=== PATIENT | male | born 1950 | race Caucasian/White ===

== ENCOUNTER 2022-03-05 10:39 | Day surgery (SDC) | payer OTHER ==
[2022-03-04 12:18] LABS: COVID AG,FIA SOURCE NASAL SWAB
[~2022-03-05] VITALS: Ht 182.9 cm; Wt 78.5 kg
[~2022-03-05 10:39] MED LIST: ASPI-1450 PO; ATOR40TA71 PO; CHOL10002 PO; CLOT15CR23 TP; DAPA10TA PO; DEXT15DR29 OU; DOCU100C33 PO; DULO-113 PO; FERR325T23 PO; GABA800T9 PO; INSU100V43 SQ; INSU3INS5 INJ; LACT10SO10 PO; LAMO100 PO; LISI10TA24 PO; PANT-31 PO; QUET25TA PO; SODIUM CHLORIDE 0.9% 1,000 ML IV ONE; SODIUM CHLORIDE 0.9% 1,000 ML ONE; TAMS-13 PO
[2022-03-05 11:56] LABS: GLUCOMETER DEV NAME(LOC) SDS.; GLUCOSE,POINT OF CARE 86 MG/DL (70-110)
[2022-03-05] MEDS ORDERED: PROPOFOL 1% 20 ML VIAL IVP ONE (12:00)
[2022-03-05] MEDS ORDERED: INSU100I26 SQ (14:07)
== END 2022-03-05 14:55 | disposition home or self-care (01) ==
LOC: SURGERY 10:39
PROVIDERS: ATTEND Internal Medicine Gastroenterology
DX: K29.80 Duodenitis without bleeding (principal); G81.94 Hemiplegia, unspecified affecting left nondominant side; Z79.899 Other long term (current) drug therapy; Z20.822 Contact with and (suspected) exposure to COVID-19; Z87.891 Personal history of nicotine dependence; Z90.49 Acquired absence of other specified parts of digestive tract; Z87.01 Personal history of pneumonia (recurrent); Z86.73 Personal history of transient ischemic attack (TIA), and cerebral infarction without residual deficits; Z79.82 Long term (current) use of aspirin; Z91.018 Allergy to other foods
CPT/HCPCS: 87426; 43239; 88305; 82962; C9803; C1769; J2704; J7030